=== PATIENT | male | born 1960 | race Caucasian/White ===

== ENCOUNTER 2020-04-16 20:44 | Inpatient (IN) | payer MEDICARE, MEDICAID ==
[~2020-04-16] VITALS: Ht 172.7 cm; Wt 82.4 kg
[~2020-04-16 20:44] MED LIST: LISI40TA PO; MORP-52 PO; OMEP-110 PO; OXYC15TA3 PO; TRAZ50TA66 PO
--- NOTE | 2020-04-16 21:04 | NUR ---
Provider at bedside. This RN informed provider of pt.'s fever of 101.9
--- NOTE | 2020-04-16 21:39 | NUR ---
XR at bedside. Provider at bedside.
[2020-04-16] MEDS ORDERED: HYDROmorphone 1 MG/ML, 1ML INJ ONE ×2 (21:44→23:22)
[2020-04-16] MEDS ORDERED: KETOROLAC 30 MG/1 ML ONE (21:44)
[2020-04-16] MEDS: HYDROmorphone 2 MG/ML, 1ML IVPush PRN ×2 (21:48→23:29)
[2020-04-16] MEDS ORDERED: DIAZEPAM 5 MG TABLET ONE (21:53)
[2020-04-16] MEDS ORDERED: SODIUM CHLORIDE FLUSH 10ML SYR IVF ONE (22:00)
[2020-04-16] MEDS ORDERED: DIAZEPAM 5 MG TABLET PO ONE (22:00)
[2020-04-16] MEDS ORDERED: SODIUM CHLORIDE 0.9% 1,000ML IV ONE (22:00)
[2020-04-16] MEDS ORDERED: KETOROLAC 30 MG/1 ML IVPush ONE (22:00)
--- NOTE | 2020-04-16 22:02 | NUR ---
Toradol, valium, dilaudid given. MRI screen sheet completed and faxed to MRI.
[2020-04-16 22:20] LABS: HCT (SEDRATE) 42.3 % (39.2-51.8)
[2020-04-16 22:22] LABS: BASOPHILS % (AUTO) 1 % (0-1); EOSINOPHILS % (AUTO) 1 % (1-7); LYMPHOCYTES % (AUTO) 16 % (22-44); MEAN CORPUSCULAR HGB CONC 34.8 g/dL (33.2-36.2); MEAN PLATELET VOLUME 9.9 fL (7.4-10.4); MONOCYTES % (AUTO) 8 % (2-9); NEUTROPHILS % (AUTO) 74 % (42-75); PLATELET COUNT 279 x10^3/uL (130-400); RED BLOOD COUNT 4.35 x10^6/uL (4.38-5.82); RED CELL DISTRIBUTION WIDTH 13.8 % (9.4-14.8)
[2020-04-16 22:23] LABS: MD NO
[2020-04-16 22:26] LABS: ALANINE AMINOTRANSFERASE 18 U/L (12-78); ALBUMIN 2.5 g/dL (3.4-5.0); ANION GAP 7 mmol/L (5-15); CALCIUM 9.8 mg/dL (8.5-10.1); CHLORIDE 99 mmol/L (98-107); CREATININE 0.98 mg/dL (0.7-1.3)
[2020-04-16 22:28] LABS: ALKALINE PHOSPHATASE 91 U/L (45-117); BILIRUBIN,TOTAL 0.4 mg/dL (0.2-1.0); TOTAL PROTEIN 8.9 g/dL (6.4-8.2)
--- NOTE | 2020-04-16 22:46 | NUR ---
Pt at MRI
--- NOTE | 2020-04-16 23:30 | NUR ---
MRI called reporting pt is in too much pain to get MRI done. This RN went to MRI and administered 1mg Dilaudid IV.
[2020-04-17] MEDS ORDERED: KETAMINE 10 MG/ML, 20ML ONE ×3 (00:18→18:27)
--- NOTE | 2020-04-17 00:24 | NUR ---
MRI called to report pt still cannot tolerate procedure d/t pain. This RN informing Dr. Orellana, Dr. Orellana explains we will go down to MRI and give Ketamine. This RN called MRI to report the plan.
[2020-04-17] MEDS ORDERED: KETAMINE 10 MG/ML, 20ML IV ONE (00:30)
[2020-04-17] MEDS ORDERED: GADOTERATE 10 MMOL/20 ML VIAL ONE (00:59)
[2020-04-17] MEDS ORDERED: MIDAZOLAM 1 MG/ML, 2ML ONE ×2 (01:03→17:52)
--- NOTE | 2020-04-17 01:03 | NUR ---
TASK RN: 4MG OF VERSED AND 200MG KETAMINE IN 20ML TAKEN TO DR. GALO IN MRI AT THIS TIME PER TELEPHONE ORDER.
--- NOTE | 2020-04-17 02:03 | NUR ---
Pt back to room 30 from MRI. Ketamine and Versed given in MRI.
--- NOTE | 2020-04-17 02:09 | NUR ---
Pt diaphoretic. Temp 99.7.
--- NOTE | 2020-04-17 03:02 | NUR ---
Report received from DEYANIRA Escobar. This RN to assume care. Awaiting MRI results.
[2020-04-17] MEDS ORDERED: VANCOMYCIN PER PHARMACY MC ONE (05:30)
[2020-04-17] MEDS ORDERED: PIPERACILLIN/TAZO/PMX 3.375GM 50 ML IVPB ONE (05:30)
[2020-04-17] MEDS ORDERED: SODIUM CHLORIDE 0.9% 1,000ML IVBOLUS ONE (05:30)
[2020-04-17] MEDS ORDERED: PIPERACILLIN/TAZO/PMX 3.375GM 50 ML ONE (05:43)
[2020-04-17] MEDS ORDERED: VANCOMYCIN 1,800 MG in SODIUM CHLORIDE 0.9% 250 ML IV ONE (06:30)
--- NOTE | 2020-04-17 06:57 | NUR ---
rREPORT FROM JQ
[2020-04-17] MEDS ORDERED: HYDROmorphone 1 MG/ML, 1ML INJ IVPush PRN ×2 (07:00→14:30)
--- NOTE | 2020-04-17 07:01 | NUR ---
Report given to DEYANIRA Mo. Patient care transferred.
[2020-04-17] MEDS ORDERED: HYDROmorphone 1 MG/ML, 1ML INJ ONE ×2 (07:24→19:47)
--- NOTE | 2020-04-17 07:55 | NUR ---
PT MEDICATED FOR PAIN PER [facility]
[2020-04-17] MEDS ORDERED: VANCOMYCIN PER PHARMACY MC PRN (08:00)
[2020-04-17] MEDS ORDERED: ONDANSETRON 2MG/ML, 2ML IVPush PRN ×4 (08:00→20:00)
[2020-04-17] MEDS ORDERED: ACETAMINOPHEN 325 MG TABLET PO PRN ×2 (08:00→14:30)
--- NOTE | 2020-04-17 08:00 | NUR ---
PHONE REPORT GIVEN TO DEYANIRA BROWN
[2020-04-17] MEDS ORDERED: ENALAPRILAT 1.25 MG/ML, 2ML IV PRN (08:30)
--- NOTE | 2020-04-17 08:39 | NUR ---
NEURO PA BEDSIDE
[2020-04-17] MEDS ORDERED: HYDROmorphone 2 MG/ML, 1ML ONE (08:58)
[2020-04-17] MEDS: PIPERACILLIN/TAZO/PMX 3.375GM 50 ML IV SCH ×3 (09:02→22:59)
[2020-04-17] MEDS: HYDROmorphone 2 MG/ML, 1ML IVPush PRN ×3 (09:03→15:14)
[2020-04-17] MEDS ORDERED: PHARMACOKINETIC MONITORING MC PRN (09:30)
[2020-04-17] MEDS ORDERED: PHARMACOKINETIC CONSULTATION MC ONE (09:30)
[2020-04-17 09:33] VITALS: BP 144/99
[2020-04-17 09:43] LABS: MICROSCOPIC NOT IND
[2020-04-17] MEDS: SODIUM CHLORIDE 0.9% 1,000 ML IV SCH ×2 (10:24→19:30)
[2020-04-17] MEDS ORDERED: FENTANYL PF 100 MCG/2ML ONE ×3 (12:07→19:47)
[2020-04-17] MEDS ORDERED: PROPOFOL 10 MG/ML, 20ML ONE ×2 (12:15→17:55)
[2020-04-17] MEDS ORDERED: ROCURONIUM 10 MG/ML,10ML ONE (12:15)
[2020-04-17] MEDS ORDERED: ONDANSETRON 2MG/ML, 2ML ONE ×2 (12:15→17:55)
[2020-04-17] MEDS ORDERED: DEXAMETHASONE 4 MG/ML, 1ML ONE ×2 (12:15→17:24)
[2020-04-17] MEDS ORDERED: SUCCINYLCHOLINE 20 MG/ML, 10ML ONE (12:15)
[2020-04-17] MEDS ORDERED: OXYcodone 5 MG/5 ML ORAL.SOL UDC ONE ×2 (14:12→19:48)
[2020-04-17] MEDS: FENTANYL PF 100 MCG/2ML IV PRN ×4 (14:16→20:05)
[2020-04-17] MEDS ORDERED: METHOCARBAMOL 1,000 MG in DEXTROSE 5% 100 ML IV PRN (14:30)
[2020-04-17] MEDS ORDERED: LABETALOL 5MG/ML, 20ML IV PRN ×2 (14:30→18:00)
[2020-04-17] MEDS ORDERED: OXYcodone 5 MG/5 ML ORAL.SOL UDC PO PRN ×2 (14:30→18:00)
[2020-04-17] MEDS ORDERED: PROMETHAZINE 25 MG/ML, 1ML IVPush PRN ×2 (14:30→18:00)
[2020-04-17] MEDS ORDERED: LORazepam 2 MG/ML, 1ML IVPush PRN (14:30)
[2020-04-17] MEDS ORDERED: hydrALAzine 20 MG/ML, 1ML IV PRN ×2 (14:30→18:00)
[2020-04-17] MEDS ORDERED: MEPERIDINE/PF 25MG/0.5ML IVPush PRN (14:30)
[2020-04-17 15:18] VITALS: BP 151/118
[2020-04-17 16:16] VITALS: BP 164/109
[2020-04-17] MEDS ORDERED: DEXAMETHASONE 4 MG/ML, 1ML IVPush SCH (16:30)
[2020-04-17] MEDS ORDERED: CYCLOBENZAPRINE 10 MG TABLET PO PRN (17:00)
[2020-04-17] MEDS: DEXAMETHASONE 4 MG/ML, 1ML IVPush SCH (17:29)
[2020-04-17] MEDS ORDERED: FENTANYL PF 250 MCG/5ML ONE ×2 (17:52→19:21)
[2020-04-17] MEDS ORDERED: ROCURONIUM 10MG/ML,5ML ONE (17:55)
[2020-04-17] MEDS ORDERED: VANCOMYCIN 1,000 MG ONE (18:22)
[2020-04-17] MEDS ORDERED: BUPIVACAINE/PF 0.5% ONE (18:22)
[2020-04-17] MEDS ORDERED: EPINEPHRINE 1 MG/ML, 1ML ONE (18:22)
[2020-04-17] MEDS ORDERED: BACITRACIN 50,000 UNIT ONE (18:22)
[2020-04-17] MEDS ORDERED: METOPROLOL 1 MG/ML, 5ML ONE (19:10)
[2020-04-17] MEDS ORDERED: METHOCARBAMOL 750 MG TABLET PO PRN (20:00)
[2020-04-17] MEDS ORDERED: MAGNESIUM HYDROXIDE 8%, 30ML UDC PO PRN (20:00)
[2020-04-17] MEDS ORDERED: PHARMACY MAY ADJ FOR RENAL FX MC PRN (20:00)
[2020-04-17] MEDS ORDERED: METHOCARBAMOL 1,000 MG in DEXTROSE 5% 100 ML IV ONE (20:00)
[2020-04-17] MEDS ORDERED: BISACODYL 10 MG SUPP PR PRN (20:00)
[2020-04-17] MEDS ORDERED: HYDROmorphone PCA 30 MG/30 ML IV PRN (20:00)
[2020-04-17] MEDS ORDERED: DIPHENHYDRAMINE 50 MG/ML, 1ML IVPush PRN (20:00)
[2020-04-17] MEDS ORDERED: PROMETHAZINE 25 MG/ML, 1ML IM PRN (20:00)
[2020-04-17] MEDS ORDERED: SENNA/DOCUSATE TABLET PO PRN (20:00)
[2020-04-17] MEDS ORDERED: LABETALOL 5MG/ML, 20ML ONE (20:11)
[2020-04-17] MEDS: HYDROmorphone 1 MG/ML, 1ML INJ IVPush PRN ×2 (20:15→20:35)
[2020-04-17 21:22] VITALS: BP 165/98
[2020-04-17] MEDS: SODIUM CHLORIDE FLUSH 10ML SYR IVF SCH (23:09)
[2020-04-17] MEDS ORDERED: ENALAPRILAT 1.25 MG/ML, 1ML IV PRN (23:30)
[2020-04-17] MEDS: D5%-0.9% NACL+KCL 20MEQ 1,000 ML IV SCH (23:35)
[2020-04-18] MEDS: DEXAMETHASONE 4 MG/ML, 1ML IVPush SCH ×4 (00:06→17:11)
[2020-04-18 00:21] VITALS: BP 143/97
[2020-04-18] MEDS ORDERED: VANCOMYCIN 1,800 MG in SODIUM CHLORIDE 0.9% 250 ML IV SCH (02:00)
[2020-04-18] MEDS: SODIUM CHLORIDE 0.9% 1,000 ML IV SCH (02:10)
[2020-04-18] MEDS: PIPERACILLIN/TAZO/PMX 3.375GM 50 ML IV SCH ×4 (04:59→22:59)
[2020-04-18 05:32] LABS: BASOPHILS % (AUTO) 0 % (0-1); EOSINOPHILS % (AUTO) 0 % (1-7); LYMPHOCYTES % (AUTO) 14 % (22-44); MEAN CORPUSCULAR HEMOGLOBIN 33.5 pg (27.5-34.5); MEAN PLATELET VOLUME 9.8 fL (7.4-10.4); MONOCYTES % (AUTO) 5 % (2-9); NEUTROPHILS % (AUTO) 81 % (42-75); PLATELET COUNT 253 x10^3/uL (130-400); RED BLOOD COUNT 3.84 x10^6/uL (4.38-5.82); RED CELL DISTRIBUTION WIDTH 13.2 % (9.4-14.8)
[2020-04-18 05:34] LABS: ANION GAP 5 mmol/L (5-15); CALCIUM 9.4 mg/dL (8.5-10.1); CHLORIDE 107 mmol/L (98-107); CREATININE 0.77 mg/dL (0.7-1.3)
[2020-04-18 05:37] LABS: MD NO
[2020-04-18 06:08] VITALS: BP 137/91
[2020-04-18] MEDS: OMEPRAZOLE 20 MG CAPSULE.DR PO SCH ×2 (06:33→17:11)
[2020-04-18] MEDS: ENOXAPARIN 40 MG/0.4 ML SQ SCH (06:34)
[2020-04-18] MEDS: METHOCARBAMOL 750 MG TABLET PO SCH ×3 (09:22→20:29)
[2020-04-18] MEDS: SODIUM CHLORIDE FLUSH 10ML SYR IVF SCH ×2 (09:23→23:00)
[2020-04-18] MEDS: LISINOPRIL 40 MG TABLET PO SCH (09:24)
[2020-04-18] MEDS: D5%-0.9% NACL+KCL 20MEQ 1,000 ML IV SCH ×2 (10:37→23:00)
[2020-04-18] MEDS: OXYcodone/APAP 10/325MG TABLET PO PRN ×2 (11:51→18:36)
[2020-04-18] MEDS ORDERED: DEXAMETHASONE 4 MG/ML, 5ML ONE ×2 (11:53→17:06)
[2020-04-18 14:05] VITALS: BP 162/104
[2020-04-18] MEDS: VANCOMYCIN 1,600 MG in SODIUM CHLORIDE 0.9% 250 ML IV SCH (15:02)
[2020-04-18 20:17] VITALS: BP 146/96
[2020-04-19] MEDS: OXYcodone/APAP 10/325MG TABLET PO PRN ×4 (00:17→19:51)
[2020-04-19] MEDS: DEXAMETHASONE 4 MG/ML, 1ML IVPush SCH ×4 (00:17→19:53)
[2020-04-19] MEDS: VANCOMYCIN 1,600 MG in SODIUM CHLORIDE 0.9% 250 ML IV SCH ×2 (03:05→16:12)
[2020-04-19 03:07] VITALS: BP 136/91
[2020-04-19] MEDS: PIPERACILLIN/TAZO/PMX 3.375GM 50 ML IV SCH ×4 (05:01→22:48)
[2020-04-19 05:23] LABS: BASOPHILS % (AUTO) 1 % (0-1); EOSINOPHILS % (AUTO) 0 % (1-7); LYMPHOCYTES % (AUTO) 13 % (22-44); MEAN CORPUSCULAR HEMOGLOBIN 33.7 pg (27.5-34.5); MEAN CORPUSCULAR HGB CONC 34.2 g/dL (33.2-36.2); MEAN PLATELET VOLUME 9.8 fL (7.4-10.4); MONOCYTES % (AUTO) 6 % (2-9); NEUTROPHILS % (AUTO) 81 % (42-75); PLATELET COUNT 273 x10^3/uL (130-400); RED BLOOD COUNT 3.73 x10^6/uL (4.38-5.82); RED CELL DISTRIBUTION WIDTH 13.3 % (9.4-14.8)
[2020-04-19 05:26] LABS: MD NO
[2020-04-19 05:29] LABS: ALBUMIN 2.2 g/dL (3.4-5.0); ANION GAP 7 mmol/L (5-15); CHLORIDE 106 mmol/L (98-107)
[2020-04-19 05:53] LABS: ALANINE AMINOTRANSFERASE 16 U/L (12-78); ALKALINE PHOSPHATASE 67 U/L (45-117); BILIRUBIN,TOTAL 0.4 mg/dL (0.2-1.0); CREATININE 0.77 mg/dL (0.7-1.3); TOTAL PROTEIN 7.3 g/dL (6.4-8.2)
[2020-04-19] MEDS: METHOCARBAMOL 750 MG TABLET PO SCH ×4 (06:00→22:28)
[2020-04-19] MEDS: D5%-0.9% NACL+KCL 20MEQ 1,000 ML IV SCH ×2 (06:00→23:24)
[2020-04-19] MEDS: OMEPRAZOLE 20 MG CAPSULE.DR PO SCH ×2 (06:04→17:59)
[2020-04-19] MEDS: ENOXAPARIN 40 MG/0.4 ML SQ SCH (06:06)
[2020-04-19 06:38] VITALS: BP 134/94
[2020-04-19] MEDS: LISINOPRIL 40 MG TABLET PO SCH (07:33)
[2020-04-19] MEDS: SODIUM CHLORIDE FLUSH 10ML SYR IVF SCH ×2 (07:33→22:28)
[2020-04-19] MEDS: HYDROmorphone 2 MG/ML, 1ML IVPush PRN ×2 (11:01→16:57)
[2020-04-19 12:22] VITALS: BP 142/91
[2020-04-19 20:16] VITALS: BP 150/96
[2020-04-19] MEDS: HYDROmorphone 1 MG/ML, 1ML INJ IVPush PRN (22:27)
[2020-04-20 00:05] VITALS: BP 156/93
[2020-04-20] MEDS: HYDROmorphone 1 MG/ML, 1ML INJ IVPush PRN (00:45)
[2020-04-20] MEDS: DEXAMETHASONE 4 MG/ML, 1ML IVPush SCH ×4 (01:24→21:37)
[2020-04-20] MEDS: VANCOMYCIN 1,600 MG in SODIUM CHLORIDE 0.9% 250 ML IV SCH (03:12)
[2020-04-20] MEDS: OXYcodone/APAP 10/325MG TABLET PO PRN ×3 (03:17→16:24)
[2020-04-20] MEDS: METHOCARBAMOL 750 MG TABLET PO SCH ×4 (05:30→21:37)
[2020-04-20] MEDS: OMEPRAZOLE 20 MG CAPSULE.DR PO SCH ×2 (05:30→16:25)
[2020-04-20] MEDS: PIPERACILLIN/TAZO/PMX 3.375GM 50 ML IV SCH ×4 (05:30→21:36)
[2020-04-20] MEDS: ENOXAPARIN 40 MG/0.4 ML SQ SCH (05:31)
[2020-04-20] MEDS: HYDROmorphone 2 MG/ML, 1ML IVPush PRN ×3 (06:26→21:38)
[2020-04-20 06:41] VITALS: BP 147/90
[2020-04-20] MEDS: LISINOPRIL 40 MG TABLET PO SCH (07:21)
[2020-04-20] MEDS: SODIUM CHLORIDE FLUSH 10ML SYR IVF SCH ×2 (07:21→21:39)
[2020-04-20 07:37] LABS: BASOPHILS % (AUTO) 1 % (0-1); EOSINOPHILS % (AUTO) 0 % (1-7); LYMPHOCYTES % (AUTO) 15 % (22-44); MEAN CORPUSCULAR HEMOGLOBIN 33.2 pg (27.5-34.5); MEAN CORPUSCULAR HGB CONC 33.9 g/dL (33.2-36.2); MEAN PLATELET VOLUME 9.3 fL (7.4-10.4); MONOCYTES % (AUTO) 8 % (2-9); NEUTROPHILS % (AUTO) 76 % (42-75); PLATELET COUNT 306 x10^3/uL (130-400); RED BLOOD COUNT 3.82 x10^6/uL (4.38-5.82); RED CELL DISTRIBUTION WIDTH 13.2 % (9.4-14.8)
[2020-04-20 07:40] LABS: MD NO
[2020-04-20 07:42] LABS: ALANINE AMINOTRANSFERASE 17 U/L (12-78); ALBUMIN 2.2 g/dL (3.4-5.0); ANION GAP 7 mmol/L (5-15); CALCIUM 9.4 mg/dL (8.5-10.1); CHLORIDE 107 mmol/L (98-107); CREATININE 0.83 mg/dL (0.7-1.3)
[2020-04-20 07:45] LABS: ALKALINE PHOSPHATASE 66 U/L (45-117); BILIRUBIN,TOTAL 0.4 mg/dL (0.2-1.0); TOTAL PROTEIN 7.5 g/dL (6.4-8.2)
[2020-04-20] MEDS: D5%-0.9% NACL+KCL 20MEQ 1,000 ML IV SCH (13:50)
[2020-04-20 14:22] VITALS: BP 156/78
[2020-04-20] MEDS ORDERED: VANCOMYCIN 1,400 MG in SODIUM CHLORIDE 0.9% 250 ML IV SCH (17:00)
[2020-04-20 18:44] VITALS: BP 129/81
[2020-04-21 01:37] VITALS: BP 152/94
[2020-04-21] MEDS: DEXAMETHASONE 4 MG/ML, 1ML IVPush SCH ×3 (01:57→14:04)
[2020-04-21] MEDS: HYDROmorphone 2 MG/ML, 1ML IVPush PRN ×4 (03:32→14:18)
[2020-04-21] MEDS: D5%-0.9% NACL+KCL 20MEQ 1,000 ML IV SCH ×2 (03:33→14:04)
[2020-04-21] MEDS: PIPERACILLIN/TAZO/PMX 3.375GM 50 ML IV SCH (04:29)
[2020-04-21 05:21] LABS: BASOPHILS % (AUTO) 0 % (0-1); EOSINOPHILS % (AUTO) 0 % (1-7); LYMPHOCYTES % (AUTO) 12 % (22-44); MEAN CORPUSCULAR HEMOGLOBIN 33.2 pg (27.5-34.5); MEAN CORPUSCULAR HGB CONC 33.9 g/dL (33.2-36.2); MEAN PLATELET VOLUME 9.2 fL (7.4-10.4); MONOCYTES % (AUTO) 6 % (2-9); NEUTROPHILS % (AUTO) 82 % (42-75); PLATELET COUNT 309 x10^3/uL (130-400); RED BLOOD COUNT 3.92 x10^6/uL (4.38-5.82); RED CELL DISTRIBUTION WIDTH 13.5 % (9.4-14.8)
[2020-04-21 05:22] LABS: MD NO
[2020-04-21 05:32] LABS: ALBUMIN 2.3 g/dL (3.4-5.0); ANION GAP 7 mmol/L (5-15); CALCIUM 9.2 mg/dL (8.5-10.1); CHLORIDE 106 mmol/L (98-107)
[2020-04-21 05:36] LABS: ALANINE AMINOTRANSFERASE 19 U/L (12-78); ALKALINE PHOSPHATASE 67 U/L (45-117); BILIRUBIN,TOTAL 0.3 mg/dL (0.2-1.0); CREATININE 0.87 mg/dL (0.7-1.3); TOTAL PROTEIN 7.6 g/dL (6.4-8.2)
[2020-04-21] MEDS: ENOXAPARIN 40 MG/0.4 ML SQ SCH (06:05)
[2020-04-21] MEDS: OXYcodone/APAP 10/325MG TABLET PO PRN ×2 (06:05→16:18)
[2020-04-21] MEDS: OMEPRAZOLE 20 MG CAPSULE.DR PO SCH (06:05)
[2020-04-21] MEDS: METHOCARBAMOL 750 MG TABLET PO SCH ×3 (06:05→16:17)
[2020-04-21 07:17] VITALS: BP 136/83
[2020-04-21] MEDS: LISINOPRIL 40 MG TABLET PO SCH (07:49)
[2020-04-21] MEDS: SODIUM CHLORIDE FLUSH 10ML SYR IVF SCH (07:50)
[2020-04-21] MEDS ORDERED: CEFTRIAXONE PMX 2GM/50ML 50 ML IVPB SCH (09:00)
[2020-04-21] MEDS ORDERED: CYCLOBENZAPRINE 10 MG TABLET PO PRN (09:30)
[2020-04-21 13:57] VITALS: BP 161/99
[2020-04-22] MEDS ORDERED: SENNA/DOCUSATE TABLET PO SCH (09:00)
== END 2020-04-21 16:30 | DRG 853 ==
LOC: ED 04-17 02:26 → EDIP 04-17 06:43 → 4NE 04-17 08:48 → 4NW 04-17 17:35
PROVIDERS: ADMIT Hospitalist; ATTEND Hospitalist
PROC: 00NY0ZZ Release Lumbar Spinal Cord, Open Approach (ICD-10-PCS; principal; 2020-04-17 12:15)
PROC: 02HV33Z Insertion of Infusion Device into Superior Vena Cava, Percutaneous Approach (ICD-10-PCS; 2020-04-21)
PROC: B518YZA Fluoroscopy of Superior Vena Cava using Other Contrast, Guidance (ICD-10-PCS; 2020-04-21)
PROC: B548ZZA Ultrasonography of Superior Vena Cava, Guidance (ICD-10-PCS; 2020-04-21)
DX: A41.9 Sepsis, unspecified organism (principal); K68.12 Psoas muscle abscess; G06.1 Intraspinal abscess and granuloma; M46.22 Osteomyelitis of vertebra, cervical region; M46.24 Osteomyelitis of vertebra, thoracic region; M46.26 Osteomyelitis of vertebra, lumbar region; C18.9 Malignant neoplasm of colon, unspecified; B19.20 Unspecified viral hepatitis C without hepatic coma; E88.2 Lipomatosis, not elsewhere classified; N28.1 Cyst of kidney, acquired; M48.062 Spinal stenosis, lumbar region with neurogenic claudication; M48.02 Spinal stenosis, cervical region; M25.78 Osteophyte, vertebrae; M21.371 Foot drop, right foot; I10 Essential (primary) hypertension; G89.29 Other chronic pain; M21.372 Foot drop, left foot; M46.49 Discitis, unspecified, multiple sites in spine; F12.90 Cannabis use, unspecified, uncomplicated; Z20.822 Contact with and (suspected) exposure to COVID-19; F17.200 Nicotine dependence, unspecified, uncomplicated; Z98.1 Arthrodesis status; Z86.61 Personal history of infections of the central nervous system
CPT/HCPCS: 36415; 36573; 71045; 72100; 72156; 72157; 72158; 80048; 80053; 80202; 81003; 83605; 84145; 85025; 85651; 86140; 87040; 87070; 87075; 87077; 87181; 87186; 87205; 87635; 96361; 96374; 96375; 99291; C1729; G0378; J0171; J0696; J1100; J1170; J1650; J1885; J2250; J2405; J2543; J2704; J3010; J3370; A9575; C1751; J0330; J2800; J3480; J7030; J7050

== ENCOUNTER 2020-05-12 08:17 | Emergency (ER) | payer MEDICARE, MEDICAID ==
[~2020-05-12] VITALS: Ht 175.3 cm; Wt 77.2 kg
[~2020-05-12 08:17] MED LIST changes: -LISI40TA PO; +LISI40TA9 PO
--- NOTE | 2020-05-12 08:55 | NUR ---
Pt has shaking and resting though arrouses with verbal stimuli and is A &O x4. Pt is tachy, ERP aware with possible dehydration. Pt on cardiac nurse specialist.
[2020-05-12 09:22] LABS: ALANINE AMINOTRANSFERASE 21 U/L (12-78); ANION GAP 15 mmol/L (5-15); CALCIUM 9.7 mg/dL (8.5-10.1); CHLORIDE 101 mmol/L (98-107); CREATININE 3.14 mg/dL (0.7-1.3)
[2020-05-12 09:24] LABS: ALKALINE PHOSPHATASE 83 U/L (45-117); BILIRUBIN,TOTAL 0.3 mg/dL (0.2-1.0); TOTAL PROTEIN 8.5 g/dL (6.4-8.2)
[2020-05-12 09:27] LABS: BASOPHILS % (AUTO) 1 % (0-1); EOSINOPHILS % (AUTO) 1 % (1-7); LYMPHOCYTES % (AUTO) 8 % (22-44); MEAN CORPUSCULAR HGB CONC 34.5 g/dL (33.2-36.2); MEAN PLATELET VOLUME 9.8 fL (7.4-10.4); MONOCYTES % (AUTO) 10 % (2-9); NEUTROPHILS % (AUTO) 81 % (42-75); PLATELET COUNT 290 x10^3/uL (130-400); RED BLOOD COUNT 3.77 x10^6/uL (4.38-5.82); RED CELL DISTRIBUTION WIDTH 13.6 % (9.4-14.8)
[2020-05-12] MEDS ORDERED: SODIUM CHLORIDE 0.9% 1,000 ML IV ONE (09:30)
[2020-05-12] MEDS ORDERED: SODIUM CHLORIDE 0.9% 1,000ML IVBOLUS ONE (09:30)
--- NOTE | 2020-05-12 09:31 | NUR ---
Spoke with patients . Pt has been confused when on the phone with for the last few days. Pt has not visited the patient in person.
[2020-05-12 09:35] LABS: MD NO
--- NOTE | 2020-05-12 09:48 | NUR ---
pt ot and from CT scan. oxygen drops to 88 while sleeping, placed on 2lnc, pt aware of what hospital he is in. awaiting labs results.
--- NOTE | 2020-05-12 09:59 | NUR ---
pt able to drink 4 ounces of water withou choking.
--- NOTE | 2020-05-12 10:04 | NUR ---
ct and labs back, chart up for ERP. pt back to sleep, snoring on oxygen.
[2020-05-12 10:43] VITALS: BP 121/61
--- NOTE | 2020-05-12 10:54 | NUR ---
pt resting, eyes closed. awaiting transportation because he is no ambulatory.
--- NOTE | 2020-05-12 11:26 | NUR ---
report to Jim Perry, repeat back for station 2. Nurse is aware of patient ssleep apnea and undertsnads the importanc eof nsal cannula at 2L when sleeping and to have Dr. Pepe assess him for sleep apnea. The nurse is aware he was dehydrated and we gave him fluids, as well as they need to get him to eat more for his albumin is low. This RN also called the patients Coy and informed her of his status and is return to [facility] at 12.
--- NOTE | 2020-05-12 12:15 | NUR ---
pt transported back to [facility] via [facility] on 2LNC.
== END 2020-05-12 12:37 ==
LOC: ED 08:42
DX: G25.0 Essential tremor (principal); N18.2 Chronic kidney disease, stage 2 (mild); M54.9 Dorsalgia, unspecified; F17.200 Nicotine dependence, unspecified, uncomplicated
CPT/HCPCS: 36415; 70450; 80053; 83605; 85025; 87040; 96360; 99284; J7030

== ENCOUNTER 2020-06-13 13:40 | Emergency (ER) | payer MEDICARE, MEDICAID ==
[~2020-06-13] VITALS: Ht 172.7 cm; Wt 80.9 kg
[~2020-06-13 13:40] MED LIST changes: +ALPR0.254 PO; +AMLO-150 PO; +CEFT2FRO2 IV; +CELE200C PO; +CLON0.1T22 PO; +CYCL10TA2 PO; +MORP-30 PO; +TRAM50TA2 PO; +[UNRECOGNIZED DRUG - OTHER] PO; +[UNRECOGNIZED DRUG - OTHER] PO; +[UNRECOGNIZED DRUG - REMARK] PO
[2020-06-13] MEDS ORDERED: OXYcodone/APAP 5/325MG TABLET PO ONE (16:00)
[2020-06-13 16:40] LABS: MICROSCOPIC NOT IND
[2020-06-13] MEDS ORDERED: OXYcodone/APAP 5/325MG TABLET ONE ×2 (16:42→16:43)
[2020-06-13 17:31] VITALS: BP 132/99
== END 2020-06-13 17:40 | disposition home or self-care (01) ==
LOC: ED 16:04
DX: R30.0 Dysuria (principal); M79.672 Pain in left foot; R94.31 Abnormal electrocardiogram [ECG] [EKG]; Z86.718 Personal history of other venous thrombosis and embolism
CPT/HCPCS: 81003; 93005; 99285

== ENCOUNTER 2020-07-19 12:04 | Outpatient (CLI) | payer MEDICARE, MEDICAID ==
[~2020-07-19 12:04] MED LIST changes: +ALPR1TAB2 PO
== END 2020-07-19 23:59 | disposition home or self-care (01) ==
LOC: RAD 12:04
PROVIDERS: ATTEND Physician Assistant Surgical
DX: M51.35 Other intervertebral disc degeneration, thoracolumbar region (principal); M41.82 Other forms of scoliosis, cervical region; M41.86 Other forms of scoliosis, lumbar region; M48.062 Spinal stenosis, lumbar region with neurogenic claudication; F40.240 Claustrophobia
CPT/HCPCS: 72082

== ENCOUNTER 2020-08-02 12:43 | Outpatient (CLI) | payer MEDICARE, MEDICAID ==
[~2020-08-02] VITALS: Ht 172.7 cm; Wt 79.6 kg
[2020-08-02] MEDS ORDERED: tizanidine PO (13:20)
[2020-08-02 13:25] VITALS: BP 132/96
[2020-08-02] MEDS ORDERED: LACTATED RINGERS 1,000 ML IV SCH (13:30)
[2020-08-02] MEDS ORDERED: LIDOCAINE-MPF 1%, 2ML INFIL ONE (13:30)
[2020-08-02] MEDS ORDERED: CHLORHEXIDINE 15 ML UDC PO ONE (13:30)
[2020-08-02] MEDS ORDERED: FENTANYL PF 100 MCG/2ML ONE ×3 (14:11→16:28)
[2020-08-02] MEDS ORDERED: PROPOFOL 10 MG/ML, 20ML ONE (14:11)
[2020-08-02] MEDS ORDERED: SUCCINYLCHOLINE 20 MG/ML, 10ML ONE (14:12)
[2020-08-02] MEDS ORDERED: ROCURONIUM 10MG/ML,5ML ONE (14:12)
[2020-08-02] MEDS ORDERED: GADOTERATE 10 MMOL/20ML SYR ONE (16:20)
[2020-08-02] MEDS ORDERED: ONDANSETRON 2MG/ML, 2ML ONE (16:59)
[2020-08-02] MEDS ORDERED: DIAZEPAM 5 MG/ML, 2ML IVPush PRN (17:30)
[2020-08-02] MEDS ORDERED: LABETALOL 5MG/ML, 20ML IV PRN (17:30)
[2020-08-02] MEDS ORDERED: FENTANYL PF 100 MCG/2ML IV PRN (17:30)
[2020-08-02] MEDS ORDERED: PROMETHAZINE 25 MG/ML, 1ML IVPush PRN (17:30)
[2020-08-02] MEDS ORDERED: PROMETHAZINE 12.5 MG SUPP PR PRN (17:30)
[2020-08-02] MEDS ORDERED: EPHEDRINE 50 MG/ML, 1ML IVPush PRN (17:30)
[2020-08-02] MEDS ORDERED: HYDROmorphone 1 MG/ML, 1ML INJ IVPush PRN (17:30)
[2020-08-02] MEDS ORDERED: OXYcodone 5 MG/5 ML ORAL.SOL UDC PO PRN (17:30)
[2020-08-02] MEDS ORDERED: MEPERIDINE/PF 25MG/0.5ML IVPush PRN (17:30)
[2020-08-02] MEDS ORDERED: ALBUTEROL SULFATE 2.5 MG/3 ML NPPB PRN (17:30)
[2020-08-02] MEDS ORDERED: DIPHENHYDRAMINE 50 MG/ML, 1ML IVPush PRN ×2 (17:30)
[2020-08-02] MEDS ORDERED: MIDAZOLAM 1 MG/ML, 2ML IV PRN (17:30)
[2020-08-02] MEDS ORDERED: ACETAMINOPHEN 325 MG TABLET PO PRN (17:30)
[2020-08-02] MEDS ORDERED: ONDANSETRON 2MG/ML, 2ML IVPush PRN (17:30)
[2020-08-02] MEDS ORDERED: hydrALAzine 20 MG/ML, 1ML IV PRN (17:30)
== END 2020-08-02 18:40 | disposition home or self-care (01) ==
LOC: RAD 12:43
PROVIDERS: ATTEND Physician Assistant Surgical
DX: M48.062 Spinal stenosis, lumbar region with neurogenic claudication (principal); M48.02 Spinal stenosis, cervical region; E11.9 Type 2 diabetes mellitus without complications; F12.90 Cannabis use, unspecified, uncomplicated; I10 Essential (primary) hypertension; F17.210 Nicotine dependence, cigarettes, uncomplicated; Z79.899 Other long term (current) drug therapy; Z98.890 Other specified postprocedural states; Z82.49 Family history of ischemic heart disease and other diseases of the circulatory system; Z20.822 Contact with and (suspected) exposure to COVID-19
CPT/HCPCS: 72156; 72157; 72158; 87635; A9575; J0330; J2405; J2704; J3010; J7120